=== PATIENT | female | born 1960 ===

== ENCOUNTER 2018-10-09 20:52 | Emergency (ER) | payer MEDICAID ==
[2018-10-09 20:58] VITALS: BP 143/73; PULSE 90; RESP 16; TEMP 98; O2SAT 96
--- NOTE | 2018-10-09 21:42 | ED PDOC ---
Lower Extremity Pain/Injury Time Seen by Provider: 10/09/18 21:18 Chief Complaint (Nursing): Lower Extremity Problem/Injury Chief Complaint (Provider): lower extremity problem/injury History Per: Patient History/Exam Limitations: no limitations Onset/Duration Of Symptoms: Days (1x) Current Symptoms Are (Timing): Still Present Severity: Moderate Additional Complaint(s): 58 year old female with no past medical history presents to the ED for an evaluation of right foot and ankle pain status post injury that occurred this morning. Patient states that she was going down the stairs when she slipped and fell down 7 steps, causing her right foot to twist outward, causing pain and swelling to the foot and ankle. Patient reports taking naproxen today 5x hours prior to arrival with no relief. Patient states that the pain is bearable, but throughout the day she has had an increase in swelling, prompting ED visit today. PMD: Prem Woo MD Past Medical History Reviewed: Historical Data, Nursing Documentation, Vital Signs Vital Signs: Last Vital Signs Temp 98.0 F 10/09/18 20:55 Pulse 90 10/09/18 20:55 Resp 16 10/09/18 20:55 BP 143/73 10/09/18 20:55 Pulse Ox 96 10/09/18 20:55 Primary Care Provider: Prem Woo - Medical History PMH: No Chronic Diseases - Family History Family History: States: No Known Family Hx - Home Medications Home Medications: Ambulatory Orders Medication Instructions Recorded Naproxen 500 mg PO Q12H PRN #30 tab 10/10/18 traMADol [Ultram] 50 mg PO Q6H PRN #16 tab 10/10/18 - Allergies Allergies/Adverse Reactions: Allergies Allergy/AdvReac Type Severity Reaction Status Date / Time aspirin Allergy RASH Verified 10/09/18 20:54 Penicillins Allergy RASH Verified 10/09/18 20:54 Review of Systems ROS Statement: Except As Marked, All Systems Reviewed And Found Negative Musculoskeletal: Positive for: Other (right foot and ankle pain and swelling) Physical Exam - Reviewed Nursing Documentation Reviewed: Yes Vital Signs Reviewed: Yes - Physical Exam Appears: Positive for: Well, Non-toxic, No Acute Distress Head Exam: Positive for: ATRAUMATIC, NORMOCEPHALIC Skin: Positive for: Normal Color, Warm, Dry Pulses-Dorsalis Pedis (L): 2+ Pulses-Dorsalis Pedis (R): 2+ Extremity: Positive for: Other (gross swelling to right ankle and foot. limited ROM due to pain. pain mostly exacerbated by flexion of the ankle and lateral movements to the left and right. capillary refill <2 seconds.) Neurological/Psych: Positive for: Awake, Alert, Oriented (3x) - ECG O2 Sat by Pulse Oximetry: 96 (RA) Pulse Ox Interpretation: Normal Medical Decision Making Medical Decision Makin:18 Initial impression: 58 year old female with foot and ankle pain status post fall Initial plan: Patient offered pain management medication, but patient states that she is comfortable at this time. * XRay foot right 3 views * XRay ankle right to include tibia fibula * reevaluation Name: STEFANIE VAZQUEZ Exam Date: October 09, 2018 9:17:57 PM EDT Modality Type: CR\SD\OH Description: CR - ANKLE 3 VIEWS Gender: F Laterality: Right : 64 Referring Physician: Melody Mcnamara EXAM: CR right ankle, 3 View. CLINICAL HISTORY: FALL AND SWELLING COMPARISON: None provided. FINDINGS: BONES: An oblique fracture is noted within the distal fibula. There is mild lateral displacement of the distal fracture fragment noted by an estimated 6.0 mm. There also appears to be a subtle avulsed cortical flake arising from the posterior inferior tibial shelf seen in the lateral view. Incidental note is made of a 5.2 mm calcaneal spur arising from the plantar aspect. JOINTS: There is asymmetrical widening of the medial joint compatible with lateral subluxation of the talar dome relative to the distal tibia by an estimated 5.8 mm. No radiographic evidence of a joint effusion. SOFT TISSUES: There is mild soft tissue swelling noted about the lateral malleolus. Moderate soft tissue swelling is seen about the medial malleolus. IMPRESSION: 1. Oblique fracture of the distal fibula as described above. 2. Lateral subluxation of the talar dome relative to the distal tibia as described above. This likely indicates ligamentous laxity. 3. Tiny avulsed cortical flake noted along the posterior inferior tibial shelf. 4. Mild and moderate soft tissue swelling about the lateral and medial malleolus respectively. 5. 5.2 mm plantar calcaneal spur. Electronically signed on October 09, 2018 10:40:56 PM EDT by: Karel Olsen M.D., M.B.A., Certified By [employer] Trained MRI and CT Specialist Name: STEFANIE VAZQUEZ Exam Date: October 09, 2018 9:17:57 PM EDT Modality Type: CR\SD\OH Description: CR - FOOT COMPLETE 3 /VIEWS Gender: F Laterality: Right : 64 Referring Physician: Melody Mcnamara EXAM: CR right foot, 3 View. CLINICAL HISTORY: Fall and swelling COMPARISON: None provided. FINDINGS: BONES: No acute fracture or aggressive appearing osseous lesion. JOINTS: As previously described, there is lateral subluxation of the talar dome relative to the distal tibia. The remaining articular interspaces appear adequately maintained. SOFT TISSUES: Marked medial soft tissue swelling noted about the posterior and midfoot. IMPRESSION: 1. Lateral subluxation of the talar dome relative to the distal tibia. 2. Marked medial soft tissue swelling of the hind-mid foot. Electronically signed on October 09, 2018 10:41:03 PM EDT by: Karel Olsen M.D., M.B.A., Certified By [employer] Trained MRI and CT Specialist 22:58 [facility] resident informed of tib fx and subluxation of the talar dome will evaluate patient in ED. 23:40 Podiatry resident at bedside examining patient. 00:10 Patient stable for d/c home as per podiatry . splinted by podiatry. patient to return on Thursdayoctober 13 for follow-up in the clinic. Rx given for naproxen and tramadol, opioid education provided. Advised to take when pain is severe. Patient educated on RICE. crutch training done guero Hinton RN. Patient demonstrated proper use of crutches. Patient states understanding and agrees with plan. Instruction provided in estonian by me verbally and written. patient going home with family members. Scribe Attestation: Documented by Mariia Mckay, acting as a scribe for Melody Mcnamara APN. Provider Scribe Attestation: All medical record entries made by the Scribe were at my direction and pe rsonally dictated by me. I have reviewed the chart and agree that the record accurately reflects my personal performance of the history, physical exam, medical decision making, and the department course for this patient. I have also personally directed, reviewed, and agree with the discharge instructions and disposition. Disposition - Clinical Impression Clinical Impression: Ankle fracture, Fracture of tibia and fibula - Patient ED Disposition Is Patient to be Admitted: No Counseled Patient/Family Regarding: Diagnosis, Need For Followup, Rx Given - Disposition Referrals: Podiatry Clinic [Outside] Disposition Time: 00:10 Condition: STABLE Additional Instructions: Regrese a clin[facility] Pod[facility], [place], October 13. Llame el Lunes para que l e den eder declan para el [place] por instruccion de [place], el residente que la atendio. Si no le pueden ricardo declan venga de todos modos el [place] in la tarde antes de las 4pm. Prescriptions: Naproxen 500 mg PO Q12H PRN #30 tab PRN Reason: Pain, Moderate (4-7) traMADol [Ultram] 50 mg PO Q6H PRN #16 tab PRN Reason: Pain, Severe (8-10) Instructions: Ankle Fracture, Fibula Fracture Forms: [employer] ([place]se) Print Language: ICELANDIC - POA Present On Arrival: None
--- NOTE | 2018-10-10 13:00 | CP.PCM.CON ---
History of Present Illness - History of Present Illness History of Present Illness: Podiatry consult - Dr. Sheriff 58F seen and evaluated at bedside in the ED for right ankle pain. States she is in severe pain to the ankle. States that she fell down some stairs and turned her ankle and noticed some swelling. States paramedics came twice, first giving her medicine and then taking her to the ED. States that she cannot move her ankle or put weight on it. States that she feels a sharp pain that is worst at both sides of the ankle. Denies n/v/f/c/sob and has no other acute complaints. PMHx: denies PSHx: All: aspirin, PCN Past Patient History - Past Social History Smoking Status: Never Smoked - PSYCHIATRIC Hx Substance Use: No - SURGICAL HISTORY Hx Surgeries: Yes Meds Home Medications: Home Medication List Medication Instructions Recorded Confirmed Type Naproxen 500 mg PO Q12H PRN #30 tab 10/10/18 Rx traMADol [Ultram] 50 mg PO Q6H PRN #16 tab 10/10/18 Rx Allergies/Adverse Reactions: Allergies Allergy/AdvReac Type Severity Reaction Status Date / Time aspirin Allergy RASH Verified 10/09/18 20:54 Penicillins Allergy RASH Verified 10/09/18 20:54 Physical Exam - Constitutional Appears: Non-toxic - Head Exam Head Exam: ATRAUMATIC - Extremities Exam Additional comments: RLE focused VASC: DP pulse palpable, PT nonpalpable 2/2 edema; cap refill <3 seconds to all digits; moderate edema noted globally at the ankle; temp gradient warm to warm DERM: minor abrasions seen medially at the ankle, no other open wounds or lesions noted ORTHO: pain on palpation at the ankle joint globally; ROM not tested 2/2 to guarding, MMT not tested NEURO: gross and protective sensation intact - Neurological Exam Neurological exam: Alert, Oriented x3 - Psychiatric Exam Psychiatric exam: Normal Affect Results - Vital Signs Recent Vital Signs: Last Vital Signs Temp 98.0 F 10/09/18 20:55 Pulse 90 10/09/18 20:55 Resp 16 10/09/18 20:55 BP 143/73 10/09/18 20:55 Pulse Ox 96 10/10/18 00:25 Assessment & Plan - Assessment and Plan (Free Text) Assessment: 58F with right bimalleolar ankle fracture Plan: Patient seen and evaluated Discussed with Dr. Sheriff VSS X-rays reviewed - oblique fx of the distal fibula, lateral subluxation of the talar dome at the joint Mild compression and posterior splint applied Educated on RICE therapy, ice and elevate while in bed Remain strict nonweightbearing with crutches for assistance in ambulation Go up steps on [place] if afraid to fall as patient lives on second story Extra strength tylenol for pain F/u in [place] [facility] clinic with Dr. Sheriff on Thursday afternoon Keep dressing clean and dry until appointment Thank you for the consult - Date & Time Date: 10/10/18 Time: 13:08
--- NOTE | 2018-10-10 16:40 | RAD ---
Date of service: 10/09/2018 PROCEDURE: Right Ankle Radiographs. HISTORY: fall/ swelling COMPARISON: Correlation made with concurrent radiographs of the right foot TECHNIQUE: 3 views obtained. FINDINGS: BONES: There is a oblique displaced fracture distal fibula with widening of the ankle medial aspect of the ankle mortise. Suspect posterior malleolar fracture as well. JOINTS: No significant osteoarthritis. Talar dome intact SOFT TISSUES: Surrounding soft tissue swelling OTHER FINDINGS: None. IMPRESSION: There is a oblique displaced fracture distal fibula with widening of the ankle medial aspect of the ankle mortise. Suspect posterior malleolar fracture as well.
--- NOTE | 2018-10-10 16:46 | RAD ---
Date of service: 10/09/2018 PROCEDURE: Right Foot Radiographs. HISTORY: Status post fall with pain and swelling. COMPARISON: Correlation made with concurrent radiographs of the right ankle TECHNIQUE: 3 views obtained. FINDINGS: BONES: Previously noted oblique displaced fracture distal fibula with widening of the ankle medial aspect of the ankle mortise less well seen on this study as compared to ankle radiographs. Suspect posterior malleolar fracture as well. JOINTS: Medial subluxation of the distal tibia with respect to the talus SOFT TISSUES: Normal. OTHER FINDINGS: None. IMPRESSION: Previously noted oblique displaced fracture distal fibula with widening of the ankle medial aspect of the ankle mortise less well seen on this study as compared to ankle radiographs. Suspect posterior malleolar fracture as well.
== END 2018-10-10 00:14 | disposition home or self-care (01) ==
LOC: H.ER 20:52
DX: S82.841A Displaced bimalleolar fracture of right lower leg, initial encounter for closed fracture (principal); S93.01XA Subluxation of right ankle joint, initial encounter; W10.9XXA Fall (on) (from) unspecified stairs and steps, initial encounter; Y92.89 Other specified places as the place of occurrence of the external cause; Z88.0 Allergy status to penicillin; Z88.6 Allergy status to analgesic agent

== ENCOUNTER 2018-10-13 17:40 | Emergency (ER) | payer MEDICAID ==
[2018-10-13] MEDS ORDERED: Sodium Chloride 0.9% 500 ML IV STA (18:06)
[2018-10-13 18:10] VITALS: BP 131/97; PULSE 84; RESP 20; TEMP 97.5; O2SAT 100
--- NOTE | 2018-10-13 18:10 | ED PDOC ---
Lower Extremity Pain/Injury Time Seen by Provider: 10/13/18 17:58 Chief Complaint (Nursing): Lower Extremity Problem/Injury Chief Complaint (Provider): ankle pain History Per: Patient History/Exam Limitations: no limitations Onset/Duration Of Symptoms: Days (10/10/18) Current Symptoms Are (Timing): Still Present Additional Complaint(s): Pt. with ankle injury 10/10/18. Saw Dr. Gamboa. Here as pain still present. No numbness, tingles, weakness. Has pain to the ankle, right. No chest pain, dyspnea. Past Medical History Reviewed: Nursing Documentation, Vital Signs Vital Signs: Last Vital Signs Temp 97.5 F L 10/13/18 17:43 Pulse 84 10/13/18 17:43 Resp 20 10/13/18 17:43 BP 131/97 H 10/13/18 17:43 Pulse Ox 100 10/13/18 17:43 Primary Care Provider: Prem Woo - Medical History PMH: Hypercholesterolemia - Surgical History Surgical History: No Surg Hx - Family History Family History: States: Unknown Family Hx - Home Medications Home Medications: Ambulatory Orders Medication Instructions Recorded Naproxen 500 mg PO Q12H PRN #30 tab 10/10/18 traMADol [Ultram] 50 mg PO Q6H PRN #16 tab 10/10/18 - Allergies Allergies/Adverse Reactions: Allergies Allergy/AdvReac Type Severity Reaction Status Date / Time aspirin Allergy RASH Verified 10/09/18 20:54 Penicillins Allergy RASH Verified 10/09/18 20:54 Review of Systems ROS Statement: Except As Marked, All Systems Reviewed And Found Negative Musculoskeletal: Positive for: Leg Pain Physical Exam - Reviewed Nursing Documentation Reviewed: Yes Vital Signs Reviewed: Yes - Physical Exam Appears: Positive for: Non-toxic, No Acute Distress Head Exam: Positive for: ATRAUMATIC, NORMAL INSPECTION, NORMOCEPHALIC Skin: Positive for: Normal Color, Warm, DRY Eye Exam: Positive for: EOMI, Normal appearance, PERRL ENT: Positive for: Normal ENT Inspection Neck: Positive for: Normal, Painless ROM Cardiovascular/Chest: Positive for: Regular Rate, Rhythm Respiratory: Positive for: CNT, Normal Breath Sounds Pulses-Post. Tibialis (R): 2+ Gastrointestinal/Abdominal: Positive for: Normal Exam, Soft. Negative for: Tenderness Back: Positive for: Normal Inspection. Negative for: L CVA Tenderness, R CVA Tenderness Extremity: Positive for: Tenderness (ankle b/l), Swelling. Negative for: Calf Tenderness Neurological/Psych: Positive for: Awake, Alert, Normal Tone - ECG O2 Sat by Pulse Oximetry: 100 Pulse Ox Interpretation: Normal - Progress ED Course And Treament: 183: Podiatry saw pt. No indications to admit or do further workup. Pt. to be dc. Fu with Dr. Gamboa. AAOx3. Pain controlled. Has meds at home. Disposition - Clinical Impression Clinical Impression: Ankle injury - Patient ED Disposition Is Patient to be Admitted: No Counseled Patient/Family Regarding: Diagnosis, Need For Followup - Disposition Referrals: Podiatry Clinic [Outside] - 10/15/18 Disposition: Routine/Home Disposition Time: 18:00 Condition: STABLE Additional Instructions: Return if not better in 3 days. Instructions: Ankle Fracture Print Language: TAJIK
--- NOTE | 2018-10-13 19:07 | CP.PCM.CON ---
History of Present Illness - History of Present Illness History of Present Illness: Podiatry consult note for Dr. Sheriff, 58 y/o female patient was seen and evaluated in the Emergency Room today due to complaints right ankle injury. Patient was initially seen in the Emergency Department on 10/09/18, was placed in a posterior splint and was asked to follow up in Clinic to book for right ankle surgery when indicated. Patient returns to the ED at this time with note from Primary care physician to admit patient. Of note, Patient was seen in clinic earlier today. Patient's posterior splint was removed and patient foot was evaluated. Patient reported to clinic today with spouse in a posterior splint and wheelchair. Patient states pain was 6/10 and controlled at this time. Patient right ankle still significantly swollen. Patient was provided with a script to have proper pre-operative testing completed to have medical clearance prior to surgery. Patient was also explained in the mean time Podiatry would obtain authorization from Insurance to have approval for the surgery. Podiatry assisted patient in booking appointment with primary care physician, Dr. Woo to have proper medical clearance. Patient was asked to have primary care physician fax clearance to the Podiatry clinic and patient would be called with date for surgery if cleared and if swelling decreased. Review of Systems - Review of Systems All systems: reviewed and no additional remarkable complaints except Review of Systems: As per HPI Past Patient History - Infectious Disease Hx of Infectious Diseases: None - Past Social History Smoking Status: Never Smoked - CARDIAC Hx Hypercholesterolemia: Yes - PSYCHIATRIC Hx Substance Use: No - SURGICAL HISTORY Hx Surgeries: Yes Meds Allergies/Adverse Reactions: Allergies Allergy/AdvReac Type Severity Reaction Status Date / Time aspirin Allergy RASH Verified 10/09/18 20:54 Penicillins Allergy RASH Verified 10/09/18 20:54 Physical Exam - Constitutional Appears: Well, Non-toxic, No Acute Distress - Head Exam Head Exam: ATRAUMATIC, NORMOCEPHALIC - Extremities Exam Additional comments: RLE focused VASC: DP pulse palpable, PT nonpalpable 2/2 edema; cap refill <3 seconds to all digits; significant edema noted globally at the ankle and to the dorsum of the foot; temp gradient warm to warm DERM: No open lesions, no erythema, no clinical signs of infection ORTHO: pain on palpation at the ankle joint globally; ROM not tested 2/2 to guarding, MMT not tested NEURO: gross and protective sensation intact - Neurological Exam Neurological exam: Alert, Oriented x3 - Psychiatric Exam Psychiatric exam: Normal Affect, Normal Mood Results - Vital Signs Recent Vital Signs: Last Vital Signs Temp 97.5 F L 10/13/18 17:43 Pulse 84 10/13/18 17:43 Resp 20 10/13/18 17:43 BP 131/97 H 10/13/18 17:43 Pulse Ox 100 10/13/18 18:39 Assessment & Plan - Assessment and Plan (Free Text) Assessment: 58 y/o female seen and evaluated in ER due to complaints of right ankle injury Plan: Patient was seen and evaluated Plan was discussed with Dr. Sheriff Chart reviewed, VSS Patient and daughter thoroughly explained that patient right lower extremity too swollen at this time for have surgery this week Patient offered to have all pre-operative testing completed in this ED for primary care physician to review Patient and daughter explained patient will need note from primary care physician stating patient is medically optimized for surgery which will need to be faxed to the Podiatry clinic prior to patient being booked for surgery Patient's daughter explained that once clearance received, if swelling has decreased patient will be appropriately booked for surgery Patient and daiughter explained patient does not need to be admitted to the hospital at this time as Podiatry will not be doing surgery within the next 1-3 days Patient's daughter demonstrated verbal understanding at this time
[2018-10-13 19:43] LABS: BASO % 0.7 % (0.0-2.0); EOS # 0.1 K/uL (0.0-0.7); EOS % 1.4 % (0.0-4.0); HEMOGLOBIN 13.5 g/dL (12.0-16.0); LYMPH # 2.1 K/uL (1.0-4.3); MEAN CELL VOLUME 83.7 fl (81.0-99.0); MEAN CORPUSCULAR HEMOGLOBIN 27.2 pg (27.0-31.0); MEAN CORPUSCULAR HGB CONC 32.5 g/dL (33.0-37.0); MEAN PLATELET VOLUME 8.9 fl (7.2-11.7); MONO # 0.5 K/uL (0.0-0.8); MONO % 9.9 % (0.0-10.0); NRBC % 0.1 % (0.0-0.0); RBC 4.95 Mil/uL (3.80-5.20); RED CELL DISTRIBUTION WIDTH 14.9 % (11.5-14.5); WHITE BLOOD COUNT 4.7 K/uL (4.8-10.8)
[2018-10-13 19:49] LABS: INR 1.1; PROTHROMBIN TIME 12.1 Seconds (9.8-13.1)
[2018-10-13 19:51] LABS: PARTIAL THROMBOPLASTIN TIME 32.5 Seconds (25.6-37.1)
[2018-10-13 19:54] LABS: BLOOD UREA NITROGEN 19 mg/dl (7-17); CALCIUM 9.4 mg/dL (8.4-10.2); GFR NON-AFRICAN AMERICAN > 60
== END 2018-10-13 18:44 | disposition home or self-care (01) ==
LOC: H.ER 17:40
DX: S99.911A Unspecified injury of right ankle, initial encounter (principal); Z88.0 Allergy status to penicillin; E78.00 Pure hypercholesterolemia, unspecified
CPT/HCPCS: 80048; 84484; 85025; 85610; 85730; 96374; 99284; J1885